=== PATIENT | female | born 1985 | race Caucasian/White ===

== ENCOUNTER 2018-02-01 12:56 | Emergency (ER) | payer BC ==
[2018-02-01 13:14] VITALS: BP 117/69
--- NOTE | 2018-02-01 13:18 | UC ---
[facility] HPI - HPI Summary HPI Summary: has a crown on tooth number 1 today had pain that was not relieved with salt water and Ibuprofen---patient has had issue with dental infection in same tooth prior - History of Current Complaint Chief Complaint: UCDentalProblem Stated Complaint: DENTAL PAIN Time Seen by Provider: 02/01/18 13:02 Hx Obtained From: Patient Hx Last Menstrual Period: 2 weeks ago, IUD ?: No Onset/Duration: Sudden Onset, Lasting Days - 1, Still Present Pain Intensity: 5 Pain Scale Used: 0-10 Numeric Aggravating Factor(s): Nothing Alleviating Factor(s): Nothing Related History: Previous Dental Care on Same Tooth - Allergies/Home Medications Allergies/Adverse Reactions: Allergies Allergy/AdvReac Type Severity Reaction Status Date / Time No Known Allergies Allergy Verified 02/01/18 13:05 Home Medications: Home Medications Ibuprofen 400 mg PO Q6HR PRN 02/01/18 [History Confirmed 02/01/18] PMH/Surg Hx/FS Hx/Imm Hx Previously Healthy: Yes - Surgical History Surgical History: Yes Surgery Procedure, Year, and Place: HPV surgery -2016 - Family History Known Family History: Positive: None - Social History Occupation: Employed Full-time Lives: With Family Alcohol Use: Occasionally Alcohol Amount: wine Substance Use Type: None Smoking Status (MU): Never Smoked Tobacco Review of Systems Constitutional: Negative Skin: Negative Eyes: Negative ENT: Dental Pain Respiratory: Negative Cardiovascular: Negative Gastrointestinal: Negative Genitourinary: Negative Motor: Negative Neurovascular: Negative Musculoskeletal: Negative Neurological: Negative Psychological: Negative Is Patient Immunocompromised?: No All Other Systems Reviewed And Are Negative: Yes Physical Exam Triage Information Reviewed: Yes Appearance: Well-Appearing, No Pain Distress, Well-Nourished Vital Signs: Initial Vital Signs Temp 99.2 F 02/01/18 13:06 Pulse 60 02/01/18 13:06 Resp 20 02/01/18 13:06 BP 117/69 02/01/18 13:06 Pulse Ox 100 02/01/18 13:06 Vital Signs Reviewed: Yes Eye Exam: Normal Eyes: Positive: Conjunctiva Clear ENT Exam: Normal ENT: Positive: Normal ENT inspection, Hearing grossly normal, Pharynx normal, Dental tenderness, Uvula midline. Negative: Nasal congestion, Tonsillar swelling, Trismus, Muffled voice, Sinus tenderness Dental Exam: Other Dental: Positive: Percussion Tenderness @ - tooth number 1 Neck exam: Normal Neck: Positive: Supple, Nontender, No Lymphadenopathy Respiratory Exam: Normal Respiratory: Positive: Chest non-tender, No respiratory distress, No accessory muscle use Cardiovascular Exam: Normal Cardiovascular: Positive: RRR, Pulses Normal, Brisk Capillary Refill Musculoskeletal Exam: Normal Musculoskeletal: Positive: Strength Intact, ROM Intact, No Edema Neurological Exam: Normal Neurological: Positive: Alert, Muscle Tone Normal Psychological Exam: Normal Skin Exam: Normal Dental Complaint Course/Dx - Course Course Of Treatment: warm compress ibuprofen, salt water rince, amoxicillin follow with dentist - Differential Dx/Diagnosis Provider Diagnoses: dental pain right upper jaw Discharge - Sign-Out/Discharge Documenting (check all that apply): Patient Departure All imaging exams completed and their final reports reviewed: No Studies - Discharge Plan Condition: Stable Disposition: HOME Prescriptions: Amoxicillin PO (*) [Amoxicillin 500 MG CAP*] 500 mg PO TID #30 cap Patient Education Materials: Ibuprofen (By mouth), Toothache (ED) Referrals: Reece LINK,[place] Brooke [Primary Care Provider] - Additional Instructions: Follow with you dentist - Billing Disposition and Condition Condition: STABLE Disposition: Home
== END 2018-02-01 13:45 | disposition home or self-care (01) ==
LOC: UCEAST 12:56
DX: K08.89 Other specified disorders of teeth and supporting structures (principal)
CPT/HCPCS: 99212; G0463